=== PATIENT | male | born 1965 | race Caucasian/White ===

== ENCOUNTER → 2021-02-06 10:42 | Outpatient (CLI) | payer BC, SELFPAY ==
[2021-02-06 14:28] LABS: Adenovirus,PCR Not Detected (NotDetected); Bordetella Pertussis Not Detected (NotDetected); Chlamydophila Pneumoniae, PCR Not Detected (NotDetected); Coronavirus 229E Not Detected (NotDetected); Coronavirus NL63 Not Detected (NotDetected); Coronavirus OC43 Not Detected (NotDetected); Coronovirus HKU1,PCR Not Detected (NotDetected); Human Metapneumovirus Not Detected (NotDetected); Influenza A, PCR Not Detected (NotDetected); Influenza AH1, 2009 Not Detected (NotDetected); Influenza AH1, PCR Not Detected (NotDetected); Influenza AH3,PCR Not Detected (NotDetected); Influenza B, PCR Not Detected (NotDetected); Mycoplasma Pneumoniae, PCR Not Detected (NotDetected); Parainfluenza 1, PCR Not Detected (NotDetected); Parainfluenza 2, PCR Not Detected (NotDetected); Parainfluenza 3, PCR Not Detected (NotDetected); Parainfluenza 4, PCR Not Detected (NotDetected); Respiratory Syncytial Virus Not Detected (NotDetected); Rhinovirus/Enterovirus Not Detected (NotDetected)
[2021-02-06 14:49] LABS: Basophils # 0.1 K/mm3 (0-0.2); Basophils % 0.7 % (0.1-2.0); Eosinophils % 0.6 % (0.1-12.0); Hematocrit 43.2 % (42.0-52.0); Hemoglobin 14.4 g/dL (14.1-18.0); Lymphocytes % 15.1 % (10-50); Mean Corpuscular HGB Conc 33.4 g/dL (31.8-35.4); Mean Corpuscular Hemoglobin 30.8 pg (27.0-31.2); Mean Corpuscular Volume 92.3 fl (80-94); Mean Platelet Volume 9.6 fl (7.4-10.4); Monocytes # 0.5 K/mm3 (0.1-1.0); Monocytes % 7.1 % (1.7-9.3); Neutrophils # 4.9 K/mm3 (1.8-7.8); Neutrophils % 76.5 % (37.0-80.0); Platelet Count 219 K/mm3 (142-424); Red Blood Count 4.68 M/mm3 (4.60-6.20); White Blood Count 6.4 K/mm3 (4.8-10.8)
[2021-02-07 08:31] LABS: Coronavirus 19, PCR Detected (NotDetected)
== END ==
PROVIDERS: PCP Family Medicine; Visit Provider Nurse Practitioner Family
DX: Z20.822 Contact with and (suspected) exposure to COVID-19 (principal); U07.1 COVID-19
CPT/HCPCS: 36415; 85025; 87581; 87633; 87798

== ENCOUNTER 2021-12-16 09:17 | Emergency (ER) | payer BC, SELFPAY ==
[2021-12-16 09:17] VITALS: BP 166/100; PULSE 70; RESP 18; TEMP 36.9; O2SAT 97; BMI 29.1
--- NOTE | 2021-12-16 09:40 | CT_ITS ---
FINAL REPORT CLINICAL HISTORY: RLQ pain and nausea since 3 am FINDINGS: CT OF THE ABDOMEN AND PELVIS WITH CONTRAST Axial CT images of the abdomen and pelvis were obtained after the administration of oral and iv contrast. Coronal reformatted images were also obtained and reviewed.This study was performed with techniques to keep radiation doses as low as reasonably achievable (ALARA). Individualized dose reduction techniques using automated exposure control or adjustment of mA and/or kV according to the patient's size were employed. Abdomen: There is mild bibasilar atelectasis. The heart is normal in size. There is a less than 1 cm presumed cyst in the left hepatic lobe. The gallbladder is unremarkable. The spleen is unremarkable. No adrenal mass is present. The pancreas has an unremarkable appearance. The kidneys are normal, without evidence of mass or hydronephrosis. The aorta is normal in caliber. There is no free fluid or adenopathy. The sigmoid colon is tortuous and extends into the lower right abdomen. There is scattered sigmoid diverticula. There is wall thickening of the sigmoid colon with inferior adjacent stranding consistent with sigmoid diverticulitis. There is no abscess, bowel obstruction, or pneumoperitoneum. Pelvis: The appendix normal. There is a right inguinal hernia containing fat. The urinary bladder is unremarkable. There is no evidence of mass or adenopathy. There is no evidence of bowel obstruction. IMPRESSION: Acute uncomplicated sigmoid diverticulitis. Reviewed, Interpreted and Dictated by Addi Flores III, MD Transcribed by Jennifer Parra Authenticated and [facility]
[2021-12-16 09:49] LABS: Basophils % 0.4 % (0.1-2.0); Eosinophils # 0.2 K/mm3 (0.0-0.4); Eosinophils % 2.2 % (0.1-12.0); Hematocrit 46.7 % (42.0-52.0); Hemoglobin 15.5 g/dL (14.1-18.0); Lymphocytes # 0.7 K/mm3 (0.7-4.5); Lymphocytes % 6.9 % (10-50); MANUAL DIFFERENTIAL MANUAL DIFFERENTIAL (MANUAL DIFF); Mean Corpuscular HGB Conc 33.3 g/dL (31.8-35.4); Mean Corpuscular Hemoglobin 31.4 pg (27.0-31.2); Mean Corpuscular Volume 94.5 fl (80-94); Mean Platelet Volume 8.2 fl (7.4-10.4); Monocytes # 0.3 K/mm3 (0.1-1.0); Monocytes % 2.7 % (1.7-9.3); Neutrophils # 9.1 K/mm3 (1.8-7.8); Neutrophils % 87.9 % (37.0-80.0); Platelet Count 279 K/mm3 (142-424); Red Blood Count 4.94 M/mm3 (4.60-6.20); White Blood Count 10.3 K/mm3 (4.8-10.8)
[2021-12-16 10:02] LABS: Alanine Aminotransferase 31 U/L (12-78); Albumin Level 4.7 g/dl (3.5-5.0); Albumin/Globulin Ratio 1.5 (1.1-1.8); Alkaline Phosphatase 66 U/L (38-126); Aspartate Amino Transferase 49 U/L (17-59); Bilirubin,Total 0.7 mg/dl (0.2-1.3); Blood Urea Nitrogen 18 mg/dl (9-20); Calcium 9.5 mg/dl (8.4-10.2); Carbon Dioxide 29 mmol/L (22.0-30.0); Chloride 101 mmol/L (98-107); Estimated Glomerular Filt Rate 116 ml/min (>60); GFR (African American) 140 ML/MIN (>60); Globulin 3.2 g/dL (1.3-3.2); Glucose 115 mg/dl (74-100); Lipase 156 U/L (23-300); Sodium 139 mmol/L (136-145); Total Protein,Serum 7.9 g/dl (6.3-8.2)
[2021-12-16 10:10] LABS: Lymphocytes % 10 % (10-50); Monocytes % 1 % (2-9); Neutrophils % 89 % (42-76); Platelet Estimate Normal; RBC Morphology Normal; Total Cells Counted 100
--- NOTE | 2021-12-16 10:11 | PC.NURSE ---
Pt to rad
[2021-12-16 11:00] VITALS: BP 147/83; PULSE 65; O2SAT 97
--- NOTE | 2021-12-16 11:15 | HMH.EDABDPAI ---
ED Disposition Clinical Impression: Diverticulitis Disposition: Home, Self-Care Condition on Discharge: Good Instructions: DI for Diverticulitis Prescriptions: Ciprofloxacin HCl [Cipro 500mg Tab] 500 mg PO BID 10 Days #20 tab Transmission Status: Pending to [facility] metroNIDAZOLE [metroNIDAZOLE 500mg Tablet] 500 mg PO TID 10 Days #30 tab Transmission Status: Pending to [facility] Ondansetron [Zofran 4mg ODT] 4 mg PO BIDP PRN #10 tab PRN Reason: Nausea Transmission Status: Pending to [facility] Referrals: Regan Beltran MD [Primary Care Provider] - - Critical Care Critical Care Time: No Attestation: On 12/16/21, the high probability of a clinically significant, sudden or life threatening deterioration of the following system(s) required my full and direct attention, intervention and personal management. The time I documented below is in addition to time spent performing reported procedures but includes the following listed in this critical care notation. Medical Decision Making - Medical Records Medical records reviewed: Yes: I reviewed the patient's medical records. - [employer] Inquiry Pt receiving controlled substance: Yes [employer] was queried for this patient: No Reason not queried -: [employer] login issues Risks and benefits of using a controlled substance: were discussed with pt by me Vital Signs: 12/16/21 09:17 Temperature 98.4 F Temperature Source Oral Pulse Rate [Left Radial] 70 Respiratory Rate 18 Blood Pressure [Right Arm] 166/100 H Blood Pressure Mean [Right Arm] 122 Blood Pressure Source [Right Arm] Automatic Cuff Blood Pressure Position [Right Arm] Sitting 02 Sat by Pulse Oximetry 97 Oxygen Delivery Method Room Air - Lab Data Lab Results 12/16/21 09:35: WBC 10.3, RBC 4.94, Hgb 15.5, Hct 46.7, MCV 94.5 H, MCH 31.4 H, MCHC 33.3, RDW 13.0, Plt Count 279, MPV 8.2, Neut % (Auto) 87.9 H, Lymph % (Auto) 6.9 L, Pickett % (Auto) 2.7, Eos % (Auto) 2.2, Baso % (Auto) 0.4, Neut # (Auto) 9.1 H, Lymph # (Auto) 0.7, Pickett # (Auto) 0.3, Eos # (Auto) 0.2, Baso # (Auto) 0.0, Total Counted 100, Neutrophils % (Manual) 89 H, Lymphocytes % (Manual) 10, Monocytes % (Manual) 1 L, Platelet Estimate Normal, RBC Morphology Normal 12/16/21 09:35: Sodium 139, Potassium 4.0, Chloride 101, Carbon Dioxide 29, Anion Gap 13.0, BUN 18, Creatinine 0.70, Estimated GFR 116, Est GFR ( Amer) 140, Glucose 115 H, Calcium 9.5, Total Bilirubin 0.7, AST 49, ALT 31, Alkaline Phosphatase 66, Total Protein 7.9, Albumin 4.7, Globulin 3.2, Albumin/Globulin Ratio 1.5, Lipase 156 Result diagrams: 12/16/21 09:35 12/16/21 09:35 Orders (Tests/Meds): ED MEDICATIONS Discontinued Medications Generic Name Dose Route Start Last Admin Trade Name Freq PRN Reason Stop Dose Admin Sodium Chloride 1,000 mls @ 999 mls/hr 12/16/21 09:45 12/16/21 10:05 Sod Chlor 0.9% 1000ml Bag IV 12/16/21 10:45 999 mls/hr .Q1H1M ALISON Administration Iopamidol 75 ml 12/16/21 10:23 12/16/21 10:24 Iopamidol-370 (76%);100ml Bottle IV 12/16/21 10:24 75 ml ONCE ONE Administration Ketorolac Tromethamine 30 mg 12/16/21 10:03 12/16/21 10:05 Ketorolac 30mg/Ml Vial IV 12/16/21 10:04 30 mg ONCE ONE Administration Morphine Sulfate 4 mg 12/16/21 09:40 Morphine 4mg/Ml Syringe IV 12/16/21 09:41 ONCE ONE Ondansetron HCl 4 mg 12/16/21 10:03 12/16/21 10:06 Ondansetron 4mg/2ml Vial IV 12/16/21 10:04 4 mg ONCE ONE Administration Sodium Chloride 10 ml 12/16/21 10:23 12/16/21 10:24 Sodium Chloride 0.9% 10ml Syr (Rad Only) IV 12/16/21 10:24 10 ml ONCE ONE Administration ORDERS Category Date Time Status Urinalysis and Microscopic Stat Lab 12/16/21 09:40 Ordered - CT Data CT Scan: Abdomen, Pelvis Time Received: 11:[address] Reviewed: Yes: I have reviewed the patient's CT results, I have viewed the radiologist's interpretation Findings Narrative: IM
[2021-12-16 12:00] VITALS: BP 159/93; PULSE 65; RESP 18; TEMP 36.9; O2SAT 99
[2021-12-16 12:03] VITALS: BP 159/93; PULSE 65; O2SAT 99
== END 2021-12-16 12:05 | disposition home or self-care (01) ==
PROVIDERS: Emergency Provider Emergency Medicine; PCP Family Medicine
DX: K57.32 Diverticulitis of large intestine without perforation or abscess without bleeding (principal); F17.290 Nicotine dependence, other tobacco product, uncomplicated; Z79.52 Long term (current) use of systemic steroids
CPT/HCPCS: 74177; 80053; 83690; 85007; 85025; 96361; 96374; 96375; 99285; J2405; Q9967